=== PATIENT | male | born 1995 | race Caucasian/White ===

== ENCOUNTER 2018-04-07 15:13 | Observation (INO) | payer OTHER ==
[2018-04-07] MEDS ORDERED: MORPHINE SULFATE 10 MG/ML INJ IM ONE (15:38)
[2018-04-07] MEDS ORDERED: CEFAZOLIN 2 GM/D5W RTU 2 GM/50 ML RTUPB IV ONE (15:41)
--- NOTE | 2018-04-07 15:41 | ER Document Report ---
ED Hand/Wrist Injury - General Chief Complaint: Finger Injury Stated Complaint: HAND LACERATION Time Seen by Provider: 04/07/18 15:35 Information source: Patient Notes: 22-year-old male who was using a wood saw when he excellently cut his left index finger. Patient is right-handed. Tetanus is up-to-date. No history of diabetes. TRAVEL OUTSIDE OF THE [place] IN LAST 30 DAYS: No - HPI Injury to: Index finger Onset: Just prior to arrival Where: [place]doors Timing: Constant Quality of pain: Pressure Severity: Moderate Pain Level: 4 Context: Laceration - Related Data Allergies/Adverse Reactions: amoxicillin [Amoxicillin] Allergy (Verified 04/07/18 15:35) cefdinir [From Omnicef] Allergy (Verified 04/07/18 15:35) Past Medical History - Social History Smoking Status: Never Smoker Chew tobacco use (# tins/day): No Family History: Reviewed & Not Pertinent Patient has suicidal ideation: No Patient has homicidal ideation: No Pulmonary Medical History: Reports: Hx Asthma Renal/ Medical History: Denies: Hx Peritoneal Dialysis - Immunizations Immunizations up to date: Yes Hx Diphtheria, Pertussis, Tetanus Vaccination: No Physical Exam - Vital signs Vitals: Pulse Resp BP Pulse Ox 74 20 140/60 H 98 04/07/18 15:18 04/07/18 15:18 04/07/18 15:18 04/07/18 15:18 Notes: Reviewed vital signs and nursing note as charted by RN. CONSTITUTIONAL: Alert and oriented and responds appropriately to questions. Well-appearing; well-nourished HEAD: Normocephalic; atraumatic EXT: Patient has almost a complete left index finger tip avulsion at the DIP joint with lateral angulation with a 2 cm piece of skin to the lateral DIP joint area holding the distal tip in place. Bleeding is oozing. He does appear to have some slight capillary refill and sensation to the distal tip. Course - Re-evaluation Re-evalutation: Given the above history and physical we ordered a stat x-ray of the finger, provided intramuscular morphine, and I was able to call the [employer] rede[employer] specialist Dr. Tapia to come and evaluate the patient. 04/07/18 15:41 The orthopedic surgeon has asked us to perform wet-to-dry dressing and I have started an IV and will provide 2 g of Ancef given what appears to be an obvious open fracture. 04/07/18 16:10 Pain is controlled. Wet-to-dry dressing has been applied. The orthopedic surgeon states he will take the patient to the operating room at around 6 PM. CBC and chemistry have been ordered. - Vital Signs Vital signs: Temp Pulse Resp BP Pulse Ox 74 20 140/60 H 98 04/07/18 15:18 04/07/18 15:18 04/07/18 15:18 04/07/18 15:18 Discharge - Discharge Clinical Impression: Laceration of left index finger with tendon involvement Qualifiers: Encounter type: initial encounter Qualified Code(s): S61.211A - Laceration without foreign body of left index finger without damage to nail, initial encounter Condition: Good Disposition: ADMITTED OBSERVATION Admitting Provider: Perez Tapia Unit Admitted: OR Referrals: SHELIA CHASE PA [Primary Care Provider] - Follow up as needed
--- NOTE | 2018-04-07 15:50 | RADIOLOGY REPORT (SQ) ---
EXAM DESCRIPTION: HAND LEFT 3 VIEWS COMPLETED DATE/TIME: 04/07/2018 3:36 pm REASON FOR STUDY: injury/laceration COMPARISON: None. EXAM PARAMETERS: NUMBER OF VIEWS: Three views. TECHNIQUE: AP, lateral and oblique radiographic images acquired of the left hand. LIMITATIONS: None. FINDINGS: MINERALIZATION: Normal. BONES: Badly comminuted fracture of the proximal and of the distal phalanx of the seconds digit. Lat eral displacement. . JOINTS: No effusions. SOFT TISSUES: No soft tissue swelling. No foreign body. OTHER: No other significant finding. IMPRESSION: Badly comminuted fracture of the distal phalanx of the seconds digit with intra-articula r extension. TECHNICAL DOCUMENTATION: JOB ID: [id number] [employer]- All Rights Reserved Reading location - IP/workstation name: [email or web address]
[2018-04-07] MEDS ORDERED: DIPH/PERTUSS(ACELL)/TETANUS VAC/PF 0.5 ML SYR (>=10YO) IM ONE (16:21)
[2018-04-07 16:25] LABS: ABSOLUTE EOSINOPHILS # (AUTO) 0.1 10^3/uL (0.0-0.6); ABSOLUTE LYMPHOCYTES (AUTO) 1.5 10^3/uL (0.5-4.7); ABSOLUTE MONOCYTES (AUTO) 0.4 10^3/uL (0.1-1.4); ABSOLUTE NEUT (AUTO) 4.9 10^3/uL (1.7-8.2); BASOPHILS % (AUTO) 0.3 % (0-2); EOSINOPHILS % (AUTO) 0.9 % (0-6); HEMATOCRIT 41.1 % (37.9-51.0); HEMOGLOBIN 14.4 g/dL (13.5-17.0); LYMPHOCYTES % (AUTO) 22.4 % (13-45); MEAN CORPUSCULAR HGB CONC 34.9 g/dL (32.0-36.0); MEAN CORPUSCULAR VOLUME 89 fl (80-97); MONOCYTES % (AUTO) 5.8 % (3-13); PLATELET COUNT 213 10^3/uL (150-450); RED BLOOD COUNT 4.63 10^6/uL (4.35-5.55); RED CELL DISTRIBUTION WIDTH 13.5 % (11.5-14.0); SEGMENTED NEUTROPHILS % (AUTO) 70.6 % (42-78); TOTAL CELLS COUNTED % (AUTO) 100 %; WHITE BLOOD COUNT 6.9 10^3/uL (4.0-10.5)
[2018-04-07] MEDS ORDERED: CEFAZOLIN SODIUM 2 GM in DEXTROSE 5%-WATER 100 ML IV ONE (16:30)
[2018-04-07 16:46] LABS: ANION GAP 7 (5-19); BLOOD UREA NITROGEN 21 mg/dL (7-20); CALCIUM 9.6 mg/dL (8.4-10.2); CARBON DIOXIDE 29 mmol/L (22-30); CHLORIDE 104 mmol/L (98-107); GLUCOSE 93 mg/dL (75-110); SODIUM 140.3 mmol/L (137-145)
[2018-04-07] MEDS ORDERED: FENTANYL CITRATE INJ/PF 250 MCG/5 ML AMPULE ONE (16:51)
[2018-04-07] MEDS ORDERED: MIDAZOLAM 2 MG/2 ML INJ ONE (16:51)
[2018-04-07] MEDS ORDERED: PROPOFOL INJ 200 MG/20 ML VIAL IV ONE (16:52)
--- NOTE | 2018-04-07 16:59 | PDOC H&P ---
History of Present Illness Admission Date/PCP: 04/07/18 16:24 Patient complains of: Left index finger laceration History of Present Illness: YOVANY NEIL is a 22 year old male sustained a skill saw injury to his left index finger this afternoon. Patient placed a bandage on his finger at the time of injury. Complains of numbness on the tip. Did receive IV antibiotics and tetanus in the emergency room and a wet-to-dry dressing placed. Current pain . Past Medical History Pulmonary Medical History: Reports: Asthma Social History Smoking Status: Never Smoker Family History Family History: Reviewed & Not Pertinent Parental Family History Reviewed: No Children Family History Reviewed: No Sibling(s) Family History Reviewed.: No Medication/Allergy Home Medications: Albuterol Sulfate [Proair HFA 200 puff/8.5 gm MDI] 2 puff IH Q4H 11/28/11 Fluticasone Propionate [Flovent Diskus 100 mcg] 2 puff IH BID 11/28/11 Ibuprofen [Motrin 600 mg Tablet] 600 mg PO Q8HP PRN #30 tablet 02/19/15 Allergies/Adverse Reactions: amoxicillin [Amoxicillin] Allergy (Verified 04/07/18 15:35) cefdinir [From Omnicef] Allergy (Verified 04/07/18 15:35) Review of Systems Constitutional: ABSENT: chills, fever(s), headache(s), weight gain, weight loss Eyes: ABSENT: visual disturbances Ears: ABSENT: hearing changes Cardiovascular: ABSENT: chest pain, dyspnea on exertion, edema, orthropnea, palpitations Respiratory: ABSENT: cough, hemoptysis Gastrointestinal: ABSENT: abdominal pain, constipation, diarrhea, hematemesis, hematochezia, nausea, vomiting Genitourinary: ABSENT: dysuria, hematuria Musculoskeletal: PRESENT: as per HPI Integumentary: ABSENT: rash, wounds Neurological: ABSENT: abnormal gait, abnormal speech, confusion, dizziness, focal weakness, syncope Psychiatric: ABSENT: anxiety, depression, homidical ideation, suicidal ideation Endocrine: ABSENT: cold intolerance, heat intolerance, menstrual abnormalities, polydipsia, polyuria Hematologic/Lymphatic: ABSENT: easy bleeding, easy bruising, lymphadenopathy Physical Exam Vital Signs: Temp Pulse Resp BP Pulse Ox 97.9 F 74 18 140/64 H 98 04/07/18 16:00 04/07/18 16:00 04/07/18 16:00 04/07/18 16:00 04/07/18 15:18 Intake & Output 04/06/18 04/07/18 04/08/18 06:59 06:59 06:59 Weight 126.7 kg General appearance: PRESENT: no acute distress, well-developed, well-nourished Head exam: PRESENT: atraumatic, normocephalic Eye exam: PRESENT: conjunctiva pink, EOMI, PERRLA. ABSENT: scleral icterus Ear exam: PRESENT: normal external ear exam Mouth exam: PRESENT: moist, tongue midline Neck exam: PRESENT: full ROM. ABSENT: carotid bruit, JVD, lymphadenopathy, thyromegaly Cardiovascular exam: PRESENT: RRR. ABSENT: diastolic murmur, rubs, systolic murmur Pulses: PRESENT: normal dorsalis pedis pul, +2 pedal pulses bilateral Vascular exam: PRESENT: normal capillary refill GI/Abdominal exam: PRESENT: normal bowel sounds, soft. ABSENT: distended, guarding, mass, organolmegaly, rebound, tenderness Rectal exam: PRESENT: deferred Musculoskeletal exam: PRESENT: other - Left index finger: Irregular oblique laceration beginning along the distal phalanx radially and extending in the ulnar direction. Venous bleeding noted. Patient lacks two-point discrimination along the radial and ulnar digital nerve distribution. Cap refill 3 seconds with normal skin turgor. Neurological exam: PRESENT: alert, awake, oriented to person, oriented to place, oriented to time, oriented to situation, CN II-XII grossly intact. ABSENT: motor sensory deficit Psychiatric exam: PRESENT: appropriate affect, normal mood. ABSENT: homicidal ideation, suicidal ideation Skin exam: PRESENT: dry, intact, warm. ABSENT: cyanosis, rash Results Laboratory Results: 04/07/18 16:07 04/07/18 16:07 04/07/18 04/07/18 16:07 16:07 WBC 6.9 RBC 4.63 Hgb 14.4 Hct 41.1 MCV 89 MCH 31.0 MCHC 34.9 RDW 13.5 Plt Count 213 Seg Neutrophils % 70.6 Lymphocytes % 22.4 Monocytes % 5.8 Eosinophils % 0.9 Basophils % 0.3 Absolute Neutrophils 4.9 Absolute Lymphocytes 1.5 Absolute Monocytes 0.4 Absolute Eosinophils 0.1 Absolute Basophils 0.0 Sodium 140.3 Potassium 4.0 Chloride 104 Carbon Dioxide 29 Anion Gap 7 BUN 21 H Creatinine 1.09 Est GFR ( Amer) > 60 Est GFR (Non-Af Amer) > 60 Glucose 93 Calcium 9.6 Impressions: Hand X-Ray 04/07/18 15:22 IMPRESSION: Badly comminuted fracture of the distal phalanx of the seconds digit with intra-articular extension. Status: Image reviewed by me - 3 views left index finger: Study demonstrates comminuted fracture of the distal phalanx with underlying soft tissue disruption. Assessment & Plan - Diagnosis (1) Open fracture of distal phalanx of digit of left hand Is this a current diagnosis for this admission?: Yes Plan: Patient sustained transphalangeal partial amputation of the left index finger there is intact capillary refill however given location he likely disrupted the radial and ulnar neurovascular bundles and possibly flexor tendon. At this point we discussed treatment options I have recommended operative intervention in a urgent/emergent manner given the location, blood supply and bleeding risks. Patient understands postoperative expectations and prognosis including the possibility that the digit is nonsalvageable postoperatively and may ultimately require amputation. Patient understands the sequelae of chronic nerve injury including persistent numbness and tingling with cold insensitivity and limited r virginie of motion. After discussing these treatment options patient has elected to proceed with operative intervention which includes exploration left index finger with possible tendon, nerve repair. (2) Traumatic amputation of tip of finger of left hand Is this a current diagnosis for this admission?: Yes
[2018-04-07] MEDS ORDERED: BUPIVACAINE HCL 0.5 % INJ/PF 30 ML SDV ONE (17:02)
[2018-04-07] MEDS ORDERED: LIDOCAINE 1% INJ-PF (10 MG/ML) 30 ML SDV ONE (17:19)
[2018-04-07] MEDS ORDERED: OXYCODONE-ACETAMINOPHEN 5-325 MG TABLET PO PRN ×3 (17:55→19:40)
[2018-04-07] MEDS ORDERED: MEPERIDINE HCL/PF INJ 25 MG/1 ML DISP.SYRIN IV PRN (17:55)
[2018-04-07] MEDS ORDERED: FENTANYL CITRATE INJ/PF 100 MCG/2 ML AMPUL IV PRN ×2 (17:55)
[2018-04-07] MEDS ORDERED: DIPHENHYDRAMINE HCL 50 MG/ML VIAL IV PRN (17:55)
[2018-04-07] MEDS ORDERED: PROMETHAZINE HCL INJ 25 MG/1 ML VIAL IV PRN ×2 (17:55)
[2018-04-07] MEDS ORDERED: MORPHINE SULFATE 10 MG/ML INJ IV PRN (17:55)
[2018-04-07] MEDS ORDERED: ONDANSETRON HCL INJ/PF 4 MG/2 ML SDV ONE (19:40)
[2018-04-07] MEDS ORDERED: HYDROMORPHONE HCL INJ/PF 2 MG/ML AMPULE IV PRN (19:40)
[2018-04-07] MEDS ORDERED: KETOROLAC TROMETHAMINE INJ/PF 30 MG/1 ML SDV IV PRN (19:41)
--- NOTE | 2018-04-07 19:53 | Operative Report ---
Operative Report DATE OF SURGERY: 04/07/18 PREOPERATIVE DIAGNOSIS: Left index open distal phalanx fracture, partial amputa tion transphalangeal index finger status post table saw injury POSTOPERATIVE DIAGNOSIS: Above plus radial/ulnar digital nerve laceration OPERATION: 1. Irrigation debridement open fracture distal phalanx fracture. 2. Open reduction to fixation with transphalangeal pinning intra-articular distal phalanx fracture. 3 radial/ulnar digital nerve repair with nerve conduit. SURGEON: ROWAN ELLIOTT ANESTHESIA: LMAC COMPLICATIONS: None ESTIMATED BLOOD LOSS: Minimal PROCEDURE: Indication for above procedure: 22-year-old male who sustained a table saw injury to left index finger. He was seen at the emergency room where the wound was loosely irrigated and covered with a wet-to-dry dressing. Patient was started on tetanus and IV Ancef. I discussed findings of radiographs and examination with the patient including operative versus nonoperative intervention and expectations along with prognosis postoperative. After discussing risks and benefits joint decision was made to proceed with operative treatment. Procedure In Detail: Patient was seen and evaluated in the preoperative holding area. The LEFT upper extremity was initialized and marked. Patient received IV antibiotics for bacterial prophylaxis. Patient was taken back to the operative room where transferred to the operative table. Once they were adequately anesthetized a surgical team debriefing was performed ensuring all instrumentation was avail able, the surgical procedure was discussed with possible concerns reviewed. A digital block was performed utilizing 20 mL of 1% lidocaine without epinephrine. The upper extremity was prepped with Betadine and draped in a sterile fashion. A timeout was done identifying correct patient, procedure and extremity everyone in attendance agree with this and verbalized no concerns. A digital tourniquet was placed Irregular laceration from the radial aspect at the nail fold to the ulnar aspect just proximal to the DIP joint. There was evidence of open fracture which was irrigated with normal saline. The laceration was then extended proximally. Blunt dissection performed. Radial and ulnar neurovascular bundles were identified proximally and tract distally which demonstrate disruption of the radial and ulnar digital nerves with intact ulnar digital artery with partial disruption of the radial digital artery given the fact the injury occurred at the trifurcation. The FDP was lacerated at its insertion point with a small stump remaining. With C-arm fluoroscopy 2 x 0.045 K wires were placed across the DIP joint reducing the intra-articular distal phalanx fracture and the joint. A modified Patel suture was then placed through the FDP tendon. With a Fidel needle each limb of the suture was placed through the distal phalanx distal to the lunula at the nail plate. This was then secured. The tendon was reinforced with [id number] 4-0 FiberWire suture. Wound was once again copiously irrigated with normal saline. With microscope magnification the distal radial and ulnar digital nerves were identified at the level of the trifurcation. There was approximately 15 mm nerve gap of each. The nerve edges were then debrided until normal appearing fascicles are evident. A 3 mm x 15 mm nerve tube was placed and secured with 8- 0 nylon suture proximally. Each bundle of the trifurcation was then reapproximated and placed into the distal aspect of the nerve tube with a ho rizontal mattress bringing the nerve firmly within the nerve tube. There was no tension proximally or distally with PIP joint range of motion. Wound was copiously irrigated with normal saline. Patient was able to fully flex and extend the PIP joint without tension on the nerve repair. Tourniquet was then removed. Any peripheral bleeding was controlled with bipolar cautery into the wound was dry. Patient had normal skin turgor and capillary refill. K wires were then cut below the skin distally. Wound was closed with interrupted 4-0 nylon and 4-0 chromic gut within the nail plate. Wound was dressed with Xeroform 4 x 4's and additional 10 cc of 0.5% bupivacaine without epinephrine was injected for postoperative pain control. Patient was placed in a radial gutter splint with janneth taping of the index to middle finger. There were lacerations along the volar aspect of the middle finger and dorsal aspect of the thumb which were less than 1 cm and no evidence of tendon involvement. Sponge counts, instrument counts, needle counts were correct. Patient was then awoken from anesthesia. Transferred from the operating room table to the operating room stretcher. There was no intraoperative complications patient tolerated procedure well stable to PACU. Postoperative plan: Patient will follow in the office in 2 weeks for wound check and radiographs. We will set him up for occupational therapy to be fitted for a radial gutter thermoplastic splint and to begin PIP joint range of motion of the index finger.
[2018-04-07] MEDS: CLINDAMYCIN 600 MG/D5W RTU 600 MG/50 ML RTUPB IV SCH (22:26)
[2018-04-08] MEDS: CLINDAMYCIN 600 MG/D5W RTU 600 MG/50 ML RTUPB IV SCH (05:47)
--- NOTE | 2018-04-08 07:29 | PDOC DISCHARGE SUMMARY ---
General - Admit/Disc Date/PCP Admission Date/Primary Care Provider: 04/07/18 16:24 Discharge Date: 04/08/18 - Discharge Diagnosis (1) Open fracture of distal phalanx of digit of left hand Is this a current diagnosis for this admission?: Yes (2) Traumatic amputation of tip of finger of left hand Is this a current diagnosis for this admission?: Yes - Additional Information Resuscitation Status: Full Code Discharge Activity: No Lifting Over 10 Pounds, No Lifting/Push/Pulling Prescriptions: Clindamycin HCl 300 mg PO TID #30 capsule Oxycodone HCl/Acetaminophen [Percocet 5-325 mg Tablet] 1 tab PO Q6 PRN #25 tab PRN Reason: Home Medications: Clindamycin HCl 300 mg PO TID #30 capsule 04/07/18 Oxycodone HCl/Acetaminophen [Percocet 5-325 mg Tablet] 1 tab PO Q6 PRN #25 tab 04/07/18 History of Present Illness History of Present Illness: YOVANY NEIL is a 22 year old male sustained a skill saw injury to his left index finger this afternoon. Patient placed a bandage on his finger at the time of injury. Complains of numbness on the tip. Did receive IV antibiotics and tetanus in the emergency room and a wet-to-dry dressing placed. Current pain 10/10. Hospital Course Hospital Course: On 04/07/18 patient underwent ORIF left index distal phalanx fracture, repair radial/ulnar digital nerves with FDP repair. Patient tolerated procedure well. Postoperatively patient was started on clindamycin for bacterial prophylaxis. On 04/08/18 patient was seen and evaluated on rounds his pain was controlled. Had no complaints or issues overnight. Physical Exam Vital Signs: Temp Pulse Resp BP Pulse Ox 98.8 F 60 18 119/58 L 99 04/08/18 03:06 04/08/18 03:06 04/08/18 03:06 04/08/18 03:06 04/08/18 03:06 Intake & Output 04/07/18 04/08/18 04/09/18 06:59 06:59 06:59 Intake Total 1000 Output Total 15 Balance 985 Weight 126.7 kg General appearance: PRESENT: no acute distress, well-developed, well-nourished Head exam: PRESENT: atraumatic, normocephalic Eye exam: PRESENT: conjunctiva pink, EOMI, PERRLA. ABSENT: scleral icterus Ear exam: PRESENT: normal external ear exam Mouth exam: PRESENT: moist, tongue midline Neck exam: PRESENT: full ROM. ABSENT: carotid bruit, JVD, lymphadenopathy, thyromegaly Cardiovascular exam: PRESENT: RRR. ABSENT: diastolic murmur, rubs, systolic murmur Pulses: PRESENT: normal dorsalis pedis pul, +2 pedal pulses bilateral Vascular exam: PRESENT: normal capillary refill GI/Abdominal exam: PRESENT: normal bowel sounds, soft. ABSENT: distended, guarding, mass, organolmegaly, rebound, tenderness Rectal exam: PRESENT: deferred Musculoskeletal exam: PRESENT: other - Left hand: Dressing clean/dry/intact. Index capillary refill less than 2 seconds with normal skin turgor. Good peripheral perfusion. Lacks sensation on the distal tip. Intact flexion/extension of the adjacent digits. Neurological exam: PRESENT: alert, awake, oriented to person, oriented to place, oriented to time, oriented to situation, CN II-XII grossly intact. ABSENT: motor sensory deficit Psychiatric exam: PRESENT: appropriate affect, normal mood. ABSENT: homicidal ideation, suicidal ideation Skin exam: PRESENT: dry, intact, warm. ABSENT: cyanosis, rash Results Laboratory Results: 04/07/18 16:07 04/07/18 16:07 04/07/18 04/07/18 16:07 16:07 WBC 6.9 RBC 4.63 Hgb 14.4 Hct 41.1 MCV 89 MCH 31.0 MCHC 34.9 RDW 13.5 Plt Count 213 Seg Neutrophils % 70.6 Lymphocytes % 22.4 Monocytes % 5.8 Eosinophils % 0.9 Basophils % 0.3 Absolute Neutrophils 4.9 Absolute Lymphocytes 1.5 Absolute Monocytes 0.4 Absolute Eosinophils 0.1 Absolute Basophils 0.0 Sodium 140.3 Potassium 4.0 Chloride 104 Carbon Dioxide 29 Anion Gap 7 BUN 21 H Creatinine 1.09 Est GFR ( Amer) > 60 Est GFR (Non-Af Amer) > 60 Glucose 93 Calcium 9.6 Impressions: Hand X-Ray 04/07/18 15:22 IMPRESSION: Badly comminuted fracture of the distal phalanx of the seconds digit with intra-articular extension. Qualifiers - * PATIENT BEING DISCHARGED WITH ANY OF THE FOLLOWING DIAGNOSIS: No Plan Discharge Plan: Patient progressed appropriately throughout his hospital course. He was given IV antibiotics for bacterial prophylaxis given the nature of his injury. Patient will continue clindamycin p.o. He will be set up for occupational therapy as an outpatient to be fitted for a thermoplastic splint and begin PIP joint range of motion. Patient is to call with any questions or concerns including increasing redness, pain, temperature greater than 101.5. Patient was read by the instructions understood above instructions and was orthopedically stable for discharge to home on 04/08/18
[2018-04-08 08:54] VITALS: BP 145/66
--- NOTE | 2018-04-08 09:15 | RADIOLOGY REPORT (SQ) ---
EXAM DESCRIPTION: NO CHG FLUORO; FINGER LEFT COMPLETED DATE/TIME: 04/07/2018 8:03 pm REASON FOR STUDY: PERC PINNING LT 2ND DIGIT COMPARISON: None. FLUOROSCOPY TIME: 33 seconds 2 images saved to PACS. TECHNIQUE: Intra-operative images acquired during surgical procedure to evaluate progress. NUMBER OF IMAGES: 2 LIMITATIONS: None. FINDINGS: Images from open reduction internal fixation of previously described distal 2nd phalanx fr acture. Alignment is anatomic. IMPRESSION: IMAGE(S) OBTAINED DURING PROCEDURE. COMMENT: Quality ID [id number]: Final reports for procedures using fluoroscopy that document radiation exp osure indices, or exposure time and number of fluorographic images (if radiation exposure indices are not available) Please consult full operative report of the attending physician for description of the procedure. TECHNICAL DOCUMENTATION: JOB ID: [id number] [employer]- All Rights Reserved Reading location - IP/workstation name: [email or web address]
--- NOTE | 2018-04-08 09:15 | RADIOLOGY REPORT (SQ) ---
EXAM DESCRIPTION: NO CHG FLUORO; FINGER LEFT COMPLETED DATE/TIME: 04/07/2018 8:03 pm REASON FOR STUDY: PERC PINNING LT 2ND DIGIT COMPARISON: None. FLUOROSCOPY TIME: 33 seconds 2 images saved to PACS. TECHNIQUE: Intra-operative images acquired during surgical procedure to evaluate progress. NUMBER OF IMAGES: 2 LIMITATIONS: None. FINDINGS: Images from open reduction internal fixation of previously described distal 2nd phalanx fr acture. Alignment is anatomic. IMPRESSION: IMAGE(S) OBTAINED DURING PROCEDURE. COMMENT: Quality ID [id number]: Final reports for procedures using fluoroscopy that document radiation exp osure indices, or exposure time and number of fluorographic images (if radiation exposure indices are not available) Please consult full operative report of the attending physician for description of the procedure. TECHNICAL DOCUMENTATION: JOB ID: [id number] [employer]- All Rights Reserved Reading location - IP/workstation name: [email or web address]
== END 2018-04-08 09:07 | disposition home or self-care (01) ==
LOC: OROUT 15:13 → EH 16:24 → 2S 20:21
PROVIDERS: ADMIT Orthopaedic Surgery; ATTEND Orthopaedic Surgery
PROC: 01U60JZ Supplement Radial Nerve with Synthetic Substitute, Open Approach (ICD-10-PCS; 2018-04-07)
PROC: 01U40JZ Supplement Ulnar Nerve with Synthetic Substitute, Open Approach (ICD-10-PCS; 2018-04-07)
PROC: 3E0234Z Introduction of Serum, Toxoid and Vaccine into Muscle, Percutaneous Approach (ICD-10-PCS; 2018-04-07)
PROC: 0PSV04Z Reposition Left Finger Phalanx with Internal Fixation Device, Open Approach (ICD-10-PCS; principal; 2018-04-07 18:45)
PROC: 3E02340 Introduction of Influenza Vaccine into Muscle, Percutaneous Approach (ICD-10-PCS; 2018-04-08)
DX: S62.631A Displaced fracture of distal phalanx of left index finger, initial encounter for closed fracture (principal); S68.121A Partial traumatic metacarpophalangeal amputation of left index finger, initial encounter; W31.2XXA Contact with powered woodworking and forming machines, initial encounter; Y93.89 Activity, other specified; J45.909 Unspecified asthma, uncomplicated; Z79.899 Other long term (current) drug therapy; Z23 Encounter for immunization
CPT/HCPCS: 99285; 96372; 90471; 96365; 36415; 85025; 80048; 73140; 73130; 90715; 90686; 26765; 64910 ×2; G0008; C1713; C1763; J2250; J3490 ×2; J0690; J3010; J2270; J2704; 01810; G0378

== ENCOUNTER 2019-09-26 12:11 | Emergency (ER) | payer OTHER ==
--- NOTE | 2019-09-26 12:54 | EKG REPORT ---
SEVERITY:- BORDERLINE ECG - SINUS RHYTHM ATRIAL PREMATURE COMPLEX BORDERLINE T ABNORMALITIES, INFERIOR LEADS : Confirmed by: Hank Vera MD 26-Sep-2019 12:53:27
--- NOTE | 2019-09-26 13:02 | ER Document Report ---
ED Medical Screen (RME) - General Chief Complaint: Abdominal Pain Stated Complaint: CHEST PAIN Time Seen by Provider: 09/26/19 12:55 Notes: HPI: 24-year-old male presenting to the emergency department complaining of pain in the right chest after eating greasy or spicy foods over the last 2 to 3 days. Patient states that it feels like an indigestion type discomfort. No nausea vomiting shortness of breath. Pain does not change with position or movement. Patient states every time he is eaten in the last 2 to 3 days he will start with the discomfort immediately afterwards it will last for up to an hour then go away. No prior history of abdominal surgeries or gallbladder issues. Pain now also radiating into the right shoulder right upper back region PHYSICAL EXAMINATION: There is no pain on palpation of the right chest wall. Patient with mild tenderness in the right upper quadrant on palpation I have greeted and performed a rapid initial assessment of this patient. A comprehensive ED assessment and evaluation of the patient, analysis of test results and completion of medical decision making process will be conducted by an additional ED providers. TRAVEL OUTSIDE OF THE [place] IN LAST 30 DAYS: No - Related Data Allergies/Adverse Reactions: amoxicillin [Amoxicillin] Allergy (Verified 04/07/18 15:35) cefdinir [From Omnicef] Allergy (Verified 04/07/18 15:35) Past Medical History - Social History Frequency of alcohol use: Social Drug Abuse: None Pulmonary Medical History: Reports: Hx Asthma Renal/ Medical History: Denies: Hx Peritoneal Dialysis - Immunizations Immunizations up to date: Yes Hx Diphtheria, Pertussis, Tetanus Vaccination: No Physical Exam - Vital signs Vitals: Temp Pulse Resp Pulse Ox 98.9 F 62 16 100 09/26/19 12:44 09/26/19 12:44 09/26/19 12:44 09/26/19 12:44 Course - Vital Signs Vital signs: Temp Pulse Resp BP Pulse Ox 98.9 F 62 16 100 09/26/19 12:54 09/26/19 12:44 09/26/19 12:44 09/26/19 12:44
[2019-09-26 14:41] LABS: ABSOLUTE EOSINOPHILS # (AUTO) 0.1 10^3/uL (0.0-0.6); ABSOLUTE LYMPHOCYTES (AUTO) 1.5 10^3/uL (0.5-4.7); ABSOLUTE MONOCYTES (AUTO) 0.3 10^3/uL (0.1-1.4); ABSOLUTE NEUT (AUTO) 3.8 10^3/uL (1.7-8.2); BASOPHILS % (AUTO) 0.4 % (0-2); EOSINOPHILS % (AUTO) 1.3 % (0-6); HEMATOCRIT 45.6 % (37.9-51.0); HEMOGLOBIN 15.7 g/dL (13.5-17.0); LYMPHOCYTES % (AUTO) 25.9 % (13-45); MEAN CORPUSCULAR HEMOGLOBIN 31.4 pg (27.0-33.4); MEAN CORPUSCULAR HGB CONC 34.4 g/dL (32.0-36.0); MEAN CORPUSCULAR VOLUME 91 fl (80-97); MONOCYTES % (AUTO) 5.3 % (3-13); PLATELET COUNT 218 10^3/uL (150-450); RED CELL DISTRIBUTION WIDTH 13.8 % (11.5-14.0); SEGMENTED NEUTROPHILS % (AUTO) 67.1 % (42-78); TOTAL CELLS COUNTED % (AUTO) 100 %; WHITE BLOOD COUNT 5.7 10^3/uL (4.0-10.5)
--- NOTE | 2019-09-26 14:44 | RADIOLOGY REPORT (SQ) ---
EXAM DESCRIPTION: U/S ABDOMEN LIMITED W/O DOP IMAGES COMPLETED DATE/TIME: 09/26/2019 2:33 pm REASON FOR STUDY: ruq pain COMPARISON: None. TECHNIQUE: Dynamic and static grayscale images acquired of the abdomen and recorded on PACS. Additio nal selected color Doppler and spectral images recorded. LIMITATIONS: None. FINDINGS: PANCREAS: Limited visualization due to bowel gas. LIVER: No masses. Echotexture normal. LIVER VASCULATURE: Normal directional flow of the main portal vein and hepatic veins. GALLBLADDER: No stones. Normal wall thickness. No pericholecystic fluid. ULTRASOUND-DETECTED CH'S SIGN: Negative. INTRAHEPATIC DUCTS AND COMMON DUCT: CBD and intrahepatic ducts normal caliber. No filling defects. INFERIOR VENA CAVA: Normal flow. AORTA: No aneurysm. RIGHT KIDNEY: Normal size measuring 11.1 cm. Normal echogenicity. No solid or suspicious masses. No hydronephrosis. No calcifications. PERITONEAL AND RIGHT PLEURAL SPACE: No ascites or effusions. OTHER: No other significant findings. IMPRESSION: Normal right upper quadrant ultrasound as visualized. TECHNICAL DOCUMENTATION: JOB ID: [id number] 2010 [employer]- All Rights Reserved Reading location - IP/workstation name: [email or web address]
[2019-09-26 14:49] LABS: APPEARANCE,URINE CLEAR; BILIRUBIN,URINE NEGATIVE (NEGATIVE); COLOR,URINE STRAW; GLUCOSE, URINE NEGATIVE (NEGATIVE); KETONES,URINE NEGATIVE (NEGATIVE); LEUKOCYTE ESTERASE,URINE NEGATIVE (NEGATIVE); NITRITE,URINE NEGATIVE (NEGATIVE); PROTEIN,URINE NEGATIVE (NEGATIVE); URINE SPECIFIC GRAVITY 1.008; UROBILINOGEN,URINE NEGATIVE mg/dL (<2.0)
[2019-09-26 15:04] LABS: ALBUMIN 4.9 g/dL (3.5-5.0); ALKALINE PHOSPHATASE 105 U/L (38-126); ANION GAP 7 (5-19); ASPARTATE AMINO TRANSFERASE 32 U/L (17-59); BILIRUBIN,TOTAL 0.7 mg/dL (0.2-1.3); BLOOD UREA NITROGEN 18 mg/dL (7-20); CALCIUM 10.2 mg/dL (8.4-10.2); CARBON DIOXIDE 29 mmol/L (22-30); CHLORIDE 102 mmol/L (98-107); GLUCOSE 95 mg/dL (75-110); POTASSIUM 4.1 mmol/L (3.6-5.0); TOTAL PROTEIN 7.8 g/dL (6.3-8.2)
--- NOTE | 2019-09-26 17:54 | ER Document Report ---
ED General - General Chief Complaint: Abdominal Pain Stated Complaint: CHEST PAIN Time Seen by Provider: 09/26/19 12:55 Primary Care Provider: SHELL ALBRECHT MD [Primary Care Provider] - Follow up as needed TANNER ALLISON MD [ACTIVE STAFF] - Follow up as needed Mode of Arrival: Ambulatory Information source: Patient TRAVEL OUTSIDE OF THE [place] IN LAST 30 DAYS: No - HPI Onset: Other - over the last several days Onset/Duration: Gradual - over last 4 days Quality of pain: Burning, Sharp Severity: Mild Pain Level: 2 Associated symptoms: Other - acid reflux like symptoms Exacerbated by: Food, Other - spicey things Relieved by: Denies Similar symptoms previously: No Recently seen / treated by doctor: No Notes: 24 year old male with no significant PMH Here in the ER for several days of right sided chest pain and right upper abdominal pain for the last several days. The patient says he notices the pain shortly after eating, specifically spicy or greasy foods. The patient has never had symptoms like this before. The patient denies fevers, chills, sweats, nausea, vomiting, trouble breathing, shortness of breath. - Related Data Allergies/Adverse Reactions: amoxicillin [Amoxicillin] Allergy (Verified 04/07/18 15:35) cefdinir [From Omnicef] Allergy (Verified 04/07/18 15:35) Past Medical History - General Information source: Patient - Social History Smoking Status: Never Smoker Frequency of alcohol use: Social Drug Abuse: None Family History: Reviewed & Not Pertinent Patient has suicidal ideation: No Patient has homicidal ideation: No Pulmonary Medical History: Reports: Hx Asthma Renal/ Medical History: Denies: Hx Peritoneal Dialysis - Immunizations Immunizations up to date: Yes Hx Diphtheria, Pertussis, Tetanus Vaccination: No Review of Systems - Review of Systems Constitutional: No symptoms reported EENT: No symptoms reported Cardiovascular: Chest pain Respiratory: No symptoms reported Gastrointestinal: Abdominal pain - RUQ Genitourinary: No symptoms reported Male Genitourinary: No symptoms reported Musculoskeletal: No symptoms reported Skin: No symptoms reported Hematologic/Lymphatic: No symptoms reported Neurological/Psychological: No symptoms reported -: Yes All other systems reviewed and negative Physical Exam - Vital signs Vitals: Temp Pulse Resp Pulse Ox 98.9 F 62 16 100 09/26/19 12:44 09/26/19 12:44 09/26/19 12:44 09/26/19 12:44 - Notes Notes: GENERAL: Well-appearing, well-nourished and in no acute distress. HEAD: Atraumatic, normocephalic. EYES: Pupils equal round and reactive to light, extraocular movements intact, sclera anicteric, conjunctiva are normal. ENT: External ears normal, nares patent, oropharynx clear without exudates. Moist mucous membranes. NECK: Normal range of motion, supple without lymphadenopathy or JVD. LUNGS: Breath sounds clear to auscultation bilaterally and equal. No wheezes rales or rhonchi. HEART: Regular rate and rhythm without murmurs, rubs or gallops. ABDOMEN: Soft, nontender, normoactive bowel sounds. No guarding, no rebound. No masses appreciated. EXTREMITIES: Normal range of motion, no pitting or edema. No clubbing or c yanosis. NEUROLOGICAL: Cranial nerves II through XII grossly intact. Normal speech, normal gait. PSYCH: Normal mood, normal affect. SKIN: Warm, Dry, normal turgor, no rashes or lesions noted. Course - Re-evaluation Re-evalutation: 09/26/19 18:22 The patient is here for right sided chest pain and RUQ pain which happens after eating greasy and spicey foods. The patient looks very well in the ER and his labs and RUQ ultrasound are unremarkable. Patient told his pain is likely from GERD but that functional galladder pain or an ulcer are also possible. Patient tod to start using anti-acid medications such as a PPI and H2 ken and to follow up with his PCP and possibly a GI Doctor if symptoms persist despite anti-acid medication treatment. The patient was concerned about his heart. He has no CAD risk factors, is very young, and has an unremarkable EKG. Patient is also PERC negative making PE unlikely. - Vital Signs Vital signs: Temp Pulse Resp BP Pulse Ox 98.7 F 58 L 18 152/64 H 100 09/26/19 16:55 09/26/19 16:55 09/26/19 16:55 09/26/19 16:55 09/26/19 16:55 - Laboratory Result Diagrams: 09/26/19 14:03 09/26/19 14:03 - Diagnostic Test Radiology reviewed: Image reviewed, Reports reviewed - EKG Interpretation by Me EKG shows normal: Sinus rhythm, [place], Intervals, QRS Complexes, ST-T Waves - except for isolated T wave inversions in lead III Rate: Normal Rhythm: NSR Discharge - Discharge Clinical Impression: GERD (gastroesophageal reflux disease) Qualifiers: Esophagitis presence: esophagitis presence not specified Qualified Code(s): K21.9 - Gastro-esophageal reflux disease without esophagitis Abdominal pain Qualifiers: Abdominal location: right upper quadrant Qualified Code(s): R10.11 - Right upper quadrant pain Condition: Stable Disposition: HOME, SELF-CARE Instructions: Abdominal Pain ([facility]), Reflux Disease (GERD) ([facility]) Additional Instructions: Try using over the counter anti-acid medications such as Protonix or Prilosec as well as Tums and Zantac. Follow up with your primary care doctor and also consider follow up with a GI Doctor such as Dr. Allison if your symptoms persist. Referrals: SHELL ALBRECHT MD [Primary Care Provider] - Follow up as needed TANNER ALLISON MD [ACTIVE STAFF] - Follow up as needed
[2019-09-26 18:41] VITALS: BP 138/72
== END 2019-09-26 18:40 | disposition home or self-care (01) ==
LOC: ER 12:11
DX: K21.9 Gastro-esophageal reflux disease without esophagitis (principal); R07.9 Chest pain, unspecified; R10.11 Right upper quadrant pain; J45.909 Unspecified asthma, uncomplicated; Z88.0 Allergy status to penicillin; Z88.1 Allergy status to other antibiotic agents
CPT/HCPCS: 36415; 76705; 80053; 81001; 83690; 84484; 85025; 93005; 93010; 99284